=== PATIENT | female | born 1995 | race Caucasian/White ===

== ENCOUNTER 2018-01-29 10:48 | Emergency (ER) | payer MEDICAID ==
[~2018-01-29] VITALS: Ht 154.9 cm; Wt 56.8 kg
[2018-01-29] MEDS ORDERED: HYDR-309 PO (10:54)
[2018-01-29] MEDS ORDERED: SODIUM CHLORIDE 0.9% 1,000 ML IV ONE (12:24)
[2018-01-29] MEDS ORDERED: KETOROLAC TROMETHAMINE 30 MG/ML VIAL IVP ONE (12:30)
[2018-01-29] MEDS ORDERED: METOCLOPRAMIDE HCL 5 MG/ML 2 ML VIAL IVP ONE (12:30)
[2018-01-29] MEDS ORDERED: SILVER SULFADIAZINE 1% 25 GM CREAM TP ONE (12:45)
[2018-01-29 13:56] VITALS: BP 120/58
== END 2018-01-29 13:55 | disposition home or self-care (01) ==
LOC: EMS 10:51
DX: T20.66XA Corrosion of second degree of forehead and cheek, initial encounter (principal); T20.611A Corrosion of second degree of right ear [any part, except ear drum], initial encounter; T51.91XA Toxic effect of unspecified alcohol, accidental (unintentional), initial encounter; G43.909 Migraine, unspecified, not intractable, without status migrainosus; Z88.5 Allergy status to narcotic agent; Z88.6 Allergy status to analgesic agent; Y93.89 Activity, other specified; Y92.89 Other specified places as the place of occurrence of the external cause; Y99.8 Other external cause status
CPT/HCPCS: 16020; 81002; 81025; 96374; 96375; 99284; J1885; J2765; J7030; Z7610